=== PATIENT | female | born 1990 | race Caucasian/White ===

== ENCOUNTER → 2017-06-30 | Outpatient (CLI) | payer OTHER ==
[~2017-06-30] MED LIST: ARTISOL8 OP; CITA40TA12 PO; CLON0.5T3 PO; IBUP600T44 PO; LMC/150 PO; NUTR-706 PO
== END | disposition home or self-care (01) ==
LOC: C.PAPS 08:03
PROVIDERS: ATTEND Physician Assistant
DX: Z12.4 Encounter for screening for malignant neoplasm of cervix (principal)